=== PATIENT | female | born 1985 | race Caucasian/White ===

== ENCOUNTER 2019-05-06 17:43 | Emergency (ER) | payer BC, OTHER ==
[~2019-05-06] VITALS: Ht 157.5 cm; Wt 68.0 kg
[2019-05-06 18:02] VITALS: BP 131/78
[2019-05-06] MEDS ORDERED: IBUPROFEN 400 MG TAB ONE (18:13)
[2019-05-06] MEDS ORDERED: IBUPROFEN 400 MG TAB PO ONE (18:15)
--- NOTE | 2019-05-06 18:17 | NUR ---
WAIT AT SHAH[facility], [id number].
--- NOTE | 2019-05-06 18:25 | NUR ---
TO ED 04
--- NOTE | 2019-05-06 18:37 | NUR ---
C/O NAUSEA & INTERMITNET RIGHT LOWER BACK PAIN RADIATING TO THE RUQ X 7 DAYS. PAIN ONLY WHEN LYING DOWN. DENIES BM CHANGES. C/O GENERALZIED BODY ACHES & FEVERX YESTERDAY. RECHECKED TEMP 100.2 ORAL AT THIS TIME. TOOK EXCEDRIN 500MG AT 4 PM TODAY. ACTIVE BS. RUQ NON TENDER TO PALPATION. MEDHX:DENIES
--- NOTE | 2019-05-06 19:03 | NUR ---
REPORT GIVEN TO KENNEDY FIGUEROA. TRANSFER OF CARE AT THIS TIME.
--- NOTE | 2019-05-06 20:00 | NUR ---
PATIENT IS IN NO DISTRESS AT THIS TIME. WILL CONTINUE TO MONITOR.
[2019-05-06 20:54] LABS: APPEARANCE,URINE CLEAR (CLEAR); BILIRUBIN,URINE NEGATIVE (NEGATIVE); BLOOD, URINE NEGATIVE (NEGATIVE); COLOR,URINE ORANGE (YELLOW); LEUKOCYTE ESTERASE ,URINE TRACE (NEGATIVE); NITRITE, URINE NEGATIVE (NEGATIVE); UGLUCOSE NEGATIVE (NEGATIVE)
--- NOTE | 2019-05-06 21:04 | NUR ---
PATIENT IS QUIETLY SITTING IN BED. AT BEDSIDE. WILL CONTINUE TO MONITOR.
[2019-05-06] MEDS ORDERED: SULFAMETH/TRIMETH DS 800/160MG 1 TAB PO ONE (21:05)
[2019-05-06 21:23] VITALS: BP 112/69
--- NOTE | 2019-05-06 21:23 | NUR ---
Patient discharged with v/s stable. Written and verbal after care instructions given and explained. Patient alert, oriented and verbalized understanding of instructions. Carried with steady gait. All questions addressed prior to discharge. ID band removed. Patient advised to follow up with PMD. Rx of BACTIM; MOTRIN given. Patient educated on indication of medication including possible reaction and side effects. Opportunity to ask questions provided and answered.
== END 2019-05-06 21:23 | disposition home or self-care (01) ==
LOC: MED 17:43
DX: N12 Tubulo-interstitial nephritis, not specified as acute or chronic (principal)
CPT/HCPCS: 81003; 81025; 99283